=== PATIENT | male | born 1980 | race Hispanic/Latino ===

== ENCOUNTER 2020-09-24 13:13 | Emergency (ER) | payer OTHER ==
[2020-09-24] MEDS ORDERED: Lidocaine 1% (PF) 30 ML VIAL ONE (13:46)
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
== END 2020-09-24 14:38 | disposition home or self-care (01) ==
LOC: NAV ERS 13:13
DX: S06.0X1A Concussion with loss of consciousness of 30 minutes or less, initial encounter (principal); S01.511A Laceration without foreign body of lip, initial encounter; S16.1XXA Strain of muscle, fascia and tendon at neck level, initial encounter; S40.011A Contusion of right shoulder, initial encounter; K04.7 Periapical abscess without sinus; L92.9 Granulomatous disorder of the skin and subcutaneous tissue, unspecified; R00.0 Tachycardia, unspecified; I10 Essential (primary) hypertension; Z87.891 Personal history of nicotine dependence; Z79.899 Other long term (current) drug therapy; Y04.0XXA Assault by unarmed brawl or fight, initial encounter; Y92.149 Unspecified place in prison as the place of occurrence of the external cause
CPT/HCPCS: 12011; 70450; 70486; 72125; J2001